=== PATIENT | female | born 1965 | race Caucasian/White ===

== ENCOUNTER 2017-03-20 07:27 | Outpatient (CLI) | payer OTHER ==
--- NOTE | 2017-03-20 08:55 | DIAGNOSTIC IMAGING REPORT ---
PROCEDURE: CT HEAD WITHOUT CONTRAST INDICATION: MEMORY DEFICIT TECHNIQUE: Axial CT images were acquired through the head. Coronal and sagittal reformations were created. COMPARISON: None. FINDINGS: No intracranial hemorrhage or extraaxial fluid collections. Ventricles are normal in size, shape and position. There is no mass, mass effect or midline shift. The buchanan-white matter differentiation is normal. There is no edema. The calvarium is intact. The paranasal sinuses and mastoid air cells are normally aerated. The extracranial soft tissues and orbits are normal. IMPRESSION: 1. No CT evidence of acute intracranial process. All CT scans at this facility use dose modulation, iterative reconstruction, and/or weight-based dosing when appropriate to reduce radiation dose to as low as reasonably achievable.
== END 2017-03-21 15:14 | disposition home or self-care (01) ==
LOC: CT SRH 07:27
DX: R41.3 Other amnesia (principal)